=== PATIENT | male | born 1960 | race Caucasian/White ===

== ENCOUNTER 2021-10-23 11:57 | Emergency (ER) | payer OTHER, SELFPAY ==
[2021-10-23 11:58] VITALS: BP 122/90; PULSE 81; RESP 16; TEMP 37.1; O2SAT 98; BMI 23.1
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
[2021-10-23 12:28] VITALS: BP 129/89; PULSE 84; RESP 16; TEMP 36.6; O2SAT 96
== END 2021-10-23 12:30 | disposition home or self-care (01) ==
LOC: ER 12:27
PROVIDERS: Emergency Provider Emergency Medicine
DX: S83.92XA Sprain of unspecified site of left knee, initial encounter (principal); M25.512 Pain in left shoulder; S00.81XA Abrasion of other part of head, initial encounter; V43.53XA Car driver injured in collision with pick-up truck in traffic accident, initial encounter
CPT/HCPCS: 99283